=== PATIENT | female | born 1975 | race Caucasian/White ===

== ENCOUNTER 2022-03-21 13:27 | Inpatient (IN) | payer OTHER ==
[~2022-03-21] VITALS: Ht 177.8 cm; Wt 86.7 kg
[2022-03-21 14:19] LABS: BASOPHILS % 1.4 % (0.0-2.0); EOSINOPHILS % 1.5 % (0.0-5.0); HEMATOCRIT. 37.1 % (36.0-48.0); HEMOGLOBIN. 12.5 g/dL (12.0-16.0); LYMPHOCYTES % 23.5 % (20.0-50.0); MEAN CORPUSCULAR HEMOGLOBIN 27.5 pg (28.0-32.0); MEAN CORPUSCULAR VOLUME 81.3 fL (81.0-99.0); MEAN PLATELET VOLUME 8.5 fl (7.4-10.4); MONOCYTES % 6.6 % (2.0-8.0); PLATELET 268 x1000/uL (130-400); RED BLOOD CELL COUNT 4.57 mill/uL (4.2-5.4); RED CELL DISTRIBUTION WIDTH 13.9 % (11.6-14.6)
[2022-03-21 14:26] LABS: CLARITY URINE CLOUDY (CLEAR); COLOR URINE YELLOW (YELLOW); KETONES URINE NEGATIVE (NEGATIVE); LEUKOCYTE ESTERASE URINE TRACE (NEGATIVE); NITRITE URINE NEGATIVE (NEGATIVE); OCCULT BLOOD URINE TRACE (NEGATIVE); PH URINE 5.5 (4.5-8.0); PROTEIN URINE NEGATIVE (NEGATIVE); SPECIFIC GRAVITY URINE 1.038 (1.005-1.030); UROBILINOGEN URINE 0.2 E.U./dL (0.2-1.0)
[2022-03-21 14:34] LABS: CHLORIDE 95 mEq/L (98-107)
[2022-03-21 14:35] LABS: BG BASE EXCESS 1.5 mmol/L (-2.0-2.0); BG CARBOXYHEMOGLOBIN 0.7 % (0.5-1.5); BG DEOXYHEMOGLOBIN 3.4 % (0.0-5.0); BG FRACTION INSPIRED OXYGEN 21; BG HCO3 ACT 25.7 mmol/L (22.0-26.0); BG METHEMOGLOBIN 0.3 % (0.0-1.5); BG OXYGEN SATURATION 96.6 % (92.0-98.5); BG OXYHEMOGLOBIN 95.6 % (94.0-97.0); BG PH 7.436 (7.350-7.450); BG PO2 83.3 mmHg (75.0-100.0); BG SAMPLE SITE RIGHT FEMORAL; BG TOTAL HEMOGLOBIN 12.8 g/dL (12.0-18.0); BG VENT MODE ROOM AIR
[2022-03-21 14:41] LABS: ETHANOL BLOOD < 10 mg/dL
[2022-03-21] MEDS ORDERED: SODIUM CHLORIDE 0.9% 1,000 ML IV ONE ×2 (15:15)
[2022-03-21] MEDS ORDERED: INSULIN REGULAR (HUMULIN R) 300UNITS/3ML VIAL SUBCUT NR (15:15)
[2022-03-21] MEDS ORDERED: CEPHALEXIN 250MG CAPSULE PO NR (15:15)
[2022-03-21 15:27] LABS: HCG SCREEN NEGATIVE
[2022-03-21 15:28] LABS: *AMPHETAMINES SCREEN URINE NEGATIVE (NEGATIVE); *BARBITURATES SCREEN URINE NEGATIVE (NEGATIVE); *BENZODIAZEPINES SCREEN URINE NEGATIVE (NEGATIVE); *COCAINE SCREEN URINE NEGATIVE (NEGATIVE); CANNABINOID URINE SCREEN NEGATIVE (NEGATIVE); METHADONE URINE SCREEN NEGATIVE (NEGATIVE); OPIATES URINE SCREEN NEGATIVE (NEGATIVE); PHENCYCLIDINE URINE SCREEN NEGATIVE (NEGATIVE)
[2022-03-21 17:27] LABS: CHLORIDE 98 mEq/L (98-107)
[2022-03-22] MEDS ORDERED: GUAIFENESIN 200MG/10ML SUGAR FREE UDC PO PRN (00:15)
[2022-03-22] MEDS ORDERED: ONDANSETRON HCL 4MG/2ML INJ IV PRN (00:15)
[2022-03-22] MEDS ORDERED: ACETAMINOPHEN 650MG SUPP PR PRN ×2 (00:15)
[2022-03-22] MEDS ORDERED: ACETAMINOPHEN 325MG TABLET PO PRN ×2 (00:15)
[2022-03-22] MEDS ORDERED: MAGNESIUM/ALUMINUM HYDROXIDE/SIMETHICONE 30ML UDC PO PRN (00:15)
[2022-03-22] MEDS ORDERED: IPRATROPIUM/ALBUTEROL 0.5-3(2.5)MG/3ML NEB HHN PRN (00:15)
[2022-03-22] MEDS ORDERED: CLONIDINE 0.1MG TABLET PO PRN (00:15)
[2022-03-22] MEDS ORDERED: DOCUSATE SODIUM 100MG CAPSULE PO PRN (00:15)
[2022-03-22] MEDS: SODIUM CHLORIDE 0.9% 1,000 ML IV SCH ×3 (00:27→16:15)
[2022-03-22] MEDS ORDERED: NALOXONE HCL 0.4MG/ML VIAL IV PRN (00:45)
[2022-03-22] MEDS: HYDROCODONE/ACETAMINOPHEN 5/325MG TABLET PO PRN ×3 (00:52→21:10)
[2022-03-22 01:35] LABS: CHLORIDE 101 mEq/L (98-107)
[2022-03-22 01:40] LABS: BETA HYDROXYBUTYRATE 0.3 mMol/L (0.0-0.3)
[2022-03-22 08:00] VITALS: BP 108/56
[2022-03-22 10:32] LABS: EOSINOPHILS % 2.9 % (0.0-5.0); HEMOGLOBIN. 12.1 g/dL (12.0-16.0); LYMPHOCYTES % 34.2 % (20.0-50.0); MEAN CORPUSCULAR HEMOGLOBIN 26.2 pg (28.0-32.0); MEAN CORPUSCULAR VOLUME 82.1 fL (81.0-99.0); MEAN PLATELET VOLUME 8.3 fl (7.4-10.4); MONOCYTES % 6.2 % (2.0-8.0); NEUTROPHILS % 55.7 % (40.0-76.0); PLATELET 227 x1000/uL (130-400); RED BLOOD CELL COUNT 4.64 mill/uL (4.2-5.4); RED CELL DISTRIBUTION WIDTH 14.1 % (11.6-14.6)
[2022-03-22 10:46] LABS: CHLORIDE 101 mEq/L (98-107)
[2022-03-22 11:01] LABS: HDL CHOLESTEROL 43 mg/dL (40-59)
[2022-03-22 11:03] LABS: CREATINE KINASE 24 IU/L (26-192); LDL CHOLESTEROL 129 mg/dL (5-100)
[2022-03-22 12:00] VITALS: BP 105/65
[2022-03-22 16:00] VITALS: BP 117/79
[2022-03-22] MEDS ORDERED: DEXTROSE 50% WATER 50ML SYRINGE IV PRN (17:30)
[2022-03-22] MEDS: INSULIN LISPRO 100 UNITS/ML SUBCUT SCH ×2 (17:50→21:00)
[2022-03-22 20:00] VITALS: BP 130/67
[2022-03-22 20:14] VITALS: BP 125/65
[2022-03-22] MEDS: BLOOD SUGAR DIAGNOSTIC STRIP TEST SCH (21:40)
[2022-03-22] MEDS: ATORVASTATIN CALCIUM 10MG TABLET PO SCH (22:00)
[2022-03-22] MEDS ORDERED: INSULIN GLARGINE 100 UNITS/ML SUBCUT SCH (22:00)
[2022-03-23] VITALS (8 sets, daily range): BP systolic 111–134; BP diastolic 68–70
[2022-03-23] MEDS: SODIUM CHLORIDE 0.9% 1,000 ML IV SCH (00:15)
[2022-03-23] MEDS: BLOOD SUGAR DIAGNOSTIC STRIP TEST SCH ×4 (06:04→21:33)
[2022-03-23 06:52] LABS: BASOPHILS % 1.2 % (0.0-2.0); EOSINOPHILS % 3.1 % (0.0-5.0); HEMATOCRIT. 38.7 % (36.0-48.0); HEMOGLOBIN. 12.4 g/dL (12.0-16.0); LYMPHOCYTES % 31.1 % (20.0-50.0); MEAN CORPUSCULAR VOLUME 81.2 fL (81.0-99.0); MEAN PLATELET VOLUME 8.3 fl (7.4-10.4); MONOCYTES % 6.3 % (2.0-8.0); NEUTROPHILS % 58.3 % (40.0-76.0); PLATELET 264 x1000/uL (130-400); RED BLOOD CELL COUNT 4.77 mill/uL (4.2-5.4); RED CELL DISTRIBUTION WIDTH 14.1 % (11.6-14.6)
[2022-03-23 07:05] LABS: CHLORIDE 102 mEq/L (98-107)
[2022-03-23] MEDS: HYDROCODONE/ACETAMINOPHEN 5/325MG TABLET PO PRN ×2 (07:49→16:04)
[2022-03-23] MEDS: INSULIN LISPRO 100 UNITS/ML SUBCUT SCH ×4 (07:58→21:49)
[2022-03-23] MEDS ORDERED: INSU100I28 SQ ×3 (12:48→12:49)
[2022-03-23] MEDS ORDERED: INSULIN GLARGINE 100 UNITS/ML SUBCUT NR (13:00)
[2022-03-23] MEDS: ATORVASTATIN CALCIUM 10MG TABLET PO SCH (21:33)
[2022-03-23] MEDS ORDERED: INSULIN GLARGINE 100 UNITS/ML SUBCUT SCH (22:00)
[2022-03-24] MEDS ORDERED: CEPH500C2 MT (08:47)
[2022-03-24] MEDS ORDERED: PYR200 MT (08:47)
== END 2022-03-23 21:43 | disposition home or self-care (01) | DRG 420 ==
LOC: ER 13:27 → MICUSO 20:07 → EDBEDREQ 20:10 → EDBEDREQTM 20:10 → EDBEDREQSVC 20:10 → 6EST 03-22 05:00
PROVIDERS: ADMIT Family Medicine Adult Medicine; ATTEND Family Medicine Adult Medicine
DX: E11.65 Type 2 diabetes mellitus with hyperglycemia (principal); E44.0 Moderate protein-calorie malnutrition; F17.210 Nicotine dependence, cigarettes, uncomplicated; E78.5 Hyperlipidemia, unspecified; Z98.891 History of uterine scar from previous surgery; Z59.00 Homelessness unspecified; Z79.4 Long term (current) use of insulin; Z68.27 Body mass index [BMI] 27.0-27.9, adult
CPT/HCPCS: 36415; 36600; 80048; 80053; 80061; 80305; 80320; 81003; 82010; 82375; 82550; 82805; 82962; 83036; 83605; 84443; 84484; 84703; 85025; 99285; J1815; J7030; G0480

== ENCOUNTER 2022-03-24 04:54 | Emergency (ER) | payer OTHER ==
[~2022-03-24] VITALS: Ht 177.8 cm; Wt 86.4 kg
[~2022-03-24 04:54] MED LIST: INSU100I28 SQ
[2022-03-24] MEDS ORDERED: SODIUM CHLORIDE 0.9% 1,000 ML IV ONE (05:30)
[2022-03-24 05:49] LABS: BASOPHILS % 0.9 % (0.0-2.0); HEMATOCRIT. 38.4 % (36.0-48.0); HEMOGLOBIN. 12.7 g/dL (12.0-16.0); LYMPHOCYTES % 23.3 % (20.0-50.0); MEAN CORPUSCULAR HEMOGLOBIN 26.9 pg (28.0-32.0); MEAN PLATELET VOLUME 8.1 fl (7.4-10.4); MONOCYTES % 6.1 % (2.0-8.0); NEUTROPHILS % 67.7 % (40.0-76.0); PLATELET 295 x1000/uL (130-400); RED BLOOD CELL COUNT 4.74 mill/uL (4.2-5.4); RED CELL DISTRIBUTION WIDTH 14.1 % (11.6-14.6)
[2022-03-24 05:56] LABS: CHLORIDE 100 mEq/L (98-107)
[2022-03-24] MEDS ORDERED: INSULIN REGULAR (HUMULIN R) 300UNITS/3ML VIAL IV ONE (06:00)
[2022-03-24 06:02] LABS: HCG SCREEN NEGATIVE
[2022-03-24 06:03] LABS: ETHANOL BLOOD < 10 mg/dL
[2022-03-24 06:11] LABS: CLARITY URINE CLOUDY (CLEAR); COLOR URINE YELLOW (YELLOW); KETONES URINE NEGATIVE (NEGATIVE); LEUKOCYTE ESTERASE URINE 2+ (NEGATIVE); NITRITE URINE POSITIVE (NEGATIVE); OCCULT BLOOD URINE TRACE (NEGATIVE); PH URINE 5.5 (4.5-8.0); PROTEIN URINE NEGATIVE (NEGATIVE); SPECIFIC GRAVITY URINE 1.032 (1.005-1.030); UROBILINOGEN URINE 0.2 E.U./dL (0.2-1.0)
[2022-03-24] MEDS ORDERED: CEFTRIAXONE 1 G PREMIX 50 ML IV ONE (06:30)
[2022-03-24 06:44] LABS: *AMPHETAMINES SCREEN URINE NEGATIVE (NEGATIVE); *BARBITURATES SCREEN URINE NEGATIVE (NEGATIVE); *BENZODIAZEPINES SCREEN URINE NEGATIVE (NEGATIVE); *COCAINE SCREEN URINE NEGATIVE (NEGATIVE); CANNABINOID URINE SCREEN NEGATIVE (NEGATIVE); METHADONE URINE SCREEN NEGATIVE (NEGATIVE); PHENCYCLIDINE URINE SCREEN NEGATIVE (NEGATIVE)
[2022-03-24 06:45] LABS: OPIATES URINE SCREEN PRESUMTIVE POSITIVE (NEGATIVE)
[2022-03-24] MEDS ORDERED: ACETAMINOPHEN 325MG TABLET PO ONE (08:00)
[2022-03-24] MEDS ORDERED: PHENAZOPYRIDINE HCL 100MG TABLET PO ONE (08:00)
[2022-03-24] MEDS ORDERED: PHENAZOPYRIDINE HCL 100MG TABLET PO SCH (08:15)
[2022-03-24] MEDS ORDERED: CEPH500C2 MT (08:47)
[2022-03-24] MEDS ORDERED: PYR200 MT (08:47)
[2022-03-24 08:59] VITALS: BP 117/68
== END 2022-03-24 09:07 | disposition home or self-care (01) ==
LOC: ER 04:54
DX: N39.0 Urinary tract infection, site not specified (principal); E11.65 Type 2 diabetes mellitus with hyperglycemia; F15.10 Other stimulant abuse, uncomplicated
CPT/HCPCS: 36415; 80053; 80305; 80320; 81003; 81025; 82962; 83690; 84703; 85025; 87077; 87086; 87186; 96365; 96366; 96375; 99284; J0696; J1815; J7030; Z7610; G0480